=== PATIENT | male | born 1985 | race American Indian/Alaskan Native ===

== ENCOUNTER 2016-05-15 09:18 | Emergency (ER) | payer SELFPAY ==
[2016-05-15 09:52] VITALS: BP 130/91
== END 2016-05-15 14:08 | disposition left against medical advice (07) ==
LOC: ED 09:18
DX: K08.89 Other specified disorders of teeth and supporting structures (principal); Z53.21 Procedure and treatment not carried out due to patient leaving prior to being seen by health care provider

== ENCOUNTER 2018-01-29 19:43 | Emergency (ER) | payer SELFPAY ==
[2018-01-29 20:17] VITALS: BP 141/97
== END 2018-01-30 01:15 | disposition left against medical advice (07) ==
LOC: ED 19:43
DX: K08.89 Other specified disorders of teeth and supporting structures (principal); Z53.21 Procedure and treatment not carried out due to patient leaving prior to being seen by health care provider

== ENCOUNTER 2021-08-29 02:32 | Emergency (ER) | payer SELFPAY ==
[2021-08-29 02:55] VITALS: BP 128/85
[2021-08-29 03:30] LABS: Basophils # (Auto) 0.1 K/mm3 (0.0-0.1); Basophils % (Auto) 0.8 % (0.0-1.8); Eosinophils # (Auto) 0.4 K/mm3 (0.0-0.4); Eosinophils % (Auto) 5.9 % (0.0-4.3); Hematocrit 43.4 % (35.5-45.6); Hemoglobin 14.2 gm/dl (11.8-15.2); Lymphocytes # (Auto) 2.3 K/mm3 (1.2-5.4); Mean Corpuscular HGB Conc 33 % (32-34); Mean Corpuscular Volume 87 fl (84-94); Monocytes # (Auto) 0.7 K/mm3 (0.0-0.8); Monocytes % (Auto) 11.7 % (0.0-7.3); Platelet Count 159 K/mm3 (140-440); Red Cell Distribution Width 13.2 % (13.2-15.2)
--- NOTE | 2021-08-29 03:36 | XRay Report ---
CHEST 2 VIEWS INDICATION / CLINICAL INFORMATION: CHEST PAIN. COMPARISON: None available. FINDINGS: SUPPORT DEVICES: None. HEART / MEDIASTINUM: No significant abnormality. LUNGS / PLEURA: No significant pulmonary or pleural abnormality. No pneumothorax. BONES: No significant osseous abnormality. ADDITIONAL FINDINGS: No significant additional findings. IMPRESSION: 1. No active cardiopulmonary disease. Signer Name: Norm Lala II, MD Signed: 08/29/2021 3:32 AM Workstation Name: [id number]
[2021-08-29 03:49] LABS: Alanine Aminotransferase 16 units/L (7-56); Albumin 4.8 g/dL (3.9-5); BUN/Creatinine Ratio 13; Blood Urea Nitrogen 12 mg/dL (9-20); Calcium 9.2 mg/dL (8.4-10.2); Hemolysis Index 34
--- NOTE | 2021-08-29 10:15 | Electrocardiograph Report ---
[facility] Test Date: 2021-08-29 Test Time: 02:48:55 Pat Name: LAURA DAHL Department: Room: Gender: M Apartment Community Assistant Manager: JUDIE : 1985 Requested By: ED DOC Order Number: [id number] Reading MD: Jovon Lira Measurements Intervals [place] Rate: 74 P: 66 [place]: 180 QRS: 68 QRSD: 76 T: 41 QT: 377 QTc: 418 Interpretive Statements Sinus rhythm No previous ECG available for comparison Electronically Signed On 08-29-2021 10:15:18 EDT by Jovon Lira
== END 2021-08-29 07:28 | disposition left against medical advice (07) ==
LOC: ED 02:32
DX: R07.89 Other chest pain (principal); R20.0 Anesthesia of skin; Z53.21 Procedure and treatment not carried out due to patient leaving prior to being seen by health care provider
CPT/HCPCS: 36415; 71046; 80053; 84484; 85025; 93005

== ENCOUNTER 2021-09-16 21:10 | Emergency (ER) | payer SELFPAY ==
[2021-09-16 23:13] VITALS: BP 124/99
--- NOTE | 2021-09-17 12:14 | Electrocardiograph Report ---
[facility] Test Date: 2021-09-16 Test Time: 23:00:50 Pat Name: LAURA DAHL Department: Room: Gender: M Acting Instructor: FIONA : 1985 Requested By: KIMMY STANLEY Order Number: [id number] Reading MD: Bernardo Colby Measurements Intervals [place] Rate: 75 P: 72 [place]: 174 QRS: 88 QRSD: 76 T: 58 QT: 367 QTc: 410 Interpretive Statements Sinus rhythm ST elev, probable normal early repol pattern Compared to ECG 08/29/2021 02:48:55 No significant change Electronically Signed On 09-17-2021 12:14:47 EDT by Bernardo Colby
== END 2021-09-17 02:00 | disposition left against medical advice (07) ==
LOC: ED 21:10
DX: R07.89 Other chest pain (principal); Z53.21 Procedure and treatment not carried out due to patient leaving prior to being seen by health care provider
CPT/HCPCS: 93005